=== PATIENT | female | born 1980 | race African-American/Black ===

== ENCOUNTER 2023-08-29 12:17 | Emergency (ER) | payer BC, SELFPAY ==
[2023-08-29 12:29] VITALS: BP 146/92
[2023-08-29 12:58] LABS: % Basophils 0.4 % (0-2); % Eosinophils 0.9 % (0-6); % Immature Granulocytes 0.4 % (0-0.5); % Lymphocytes 23.7 % (20.5-51.1); % Monocytes 5.1 % (1.7-9.3); % Neutrophils 69.5 % (42.2-75.2); Absolute Eosinophils 0.1 10^3/uL (0-0.7); Absolute Lymphocytes 1.8 10^3/uL (1.2-3.4); Absolute Monocytes 0.4 10^3/uL (0.1-0.6); Absolute Neutrophils 5.3 10^3/uL (1.4-6.5); Hematocrit 31.5 % (37.0-47.0); Hemoglobin 10.5 g/dL (12.0-16.0); Mean Corp Hgb Conc. 33.3 g/dL (33.0-37.0); Mean Corpuscular Hgb 25.4 pg (27.0-31.0); Mean Corpuscular Volume 76.1 fL (81.0-99.0); Mean Platelet Volume 8.7 fL (7.4-10.4); Nucleated Red Blood Cells % 0 %; Platelet Count 473 10^3/uL (130-400); Red Blood Cell Count 4.14 10^6/uL (4.20-5.40); Red Cell Dist. Width 15.9 % (11.5-14.5); White Blood Cell Count 7.6 10^3/uL (4.8-10.8)
[2023-08-29 13:00] LABS: HCG, Serum Qualitative Screen Negative
[2023-08-29 13:05] LABS: ALT (SGPT) 20 U/L (0-35); AST (SGOT) 25 U/L (14-36); Albumin 4.4 g/dl (3.5-5.0); Alkaline Phosphatase 93 U/L (38-126); Blood Urea Nitrogen 8 mg/dl (7-17); Calcium 9.6 mg/dl (8.4-10.2); Carbon Dioxide 22 mmol/L (22-30); Chloride 105 mmol/L (98-107); Glucose 83 mg/dl (70-99); Potassium 4.1 mmol/L (3.5-5.1); Sodium 135 mmol/L (135-145); Total Bilirubin 0.4 mg/dl (0.2-1.3); Total Protein 7.6 g/dl (6.3-8.2); eGFR > 60.00
[2023-08-29 13:15] LABS: Troponin I < 0.012 ng/ml
[2023-08-29 13:18] LABS: INR 1.13; PT 14.6 Sec (11.4-14.6)
[2023-08-29 15:35] VITALS: BP 118/82
--- NOTE | 2023-08-29 16:38 | ED.GENMED ---
History of Present Illness
General
Chief Complaint: Dizziness
Source: patient
Exam Limitations: none
Time Seen by Provider: 08/29/23 15:34
Nursing documentation reviewed up to this point in time: agreed with
Travel History
Have you had any contact with someone who has COVID-19?: No
Do you have any symptoms of coronavirus? Fever > 100 degrees, chills, cough, shortness of breath, sore throat, loss of taste or smell, muscle aches, or headache?: No
History of Present Illness
History of Present Illness:
43-year-old female presenting to the emergency department today with concerns of nausea room spinning dizziness that started at home while she was playing with her kids. This was abrupt in onset and seem to improve when she rested she was able to
go to sleep last night woke up this morning had very minimal symptoms but made worse with movement improves with sitting still. No vomiting mild headache initial but that has resolved no neck pain apparently had elevated blood pressure at home as
well. Does have history of vertigo but never officially diagnosed
Review of Systems
Review of Systems
Allergies reviewed?: Yes
All Other Systems: ROS reviewed and negative except as documented in HPI and ROS
Phy Exam
Physical Exam
Physical Exam:
GENERAL: Alert , in no apparent distress
EYE: pupils equal and reactive
NECK: Supple, no significant adenopathy.
ENT: Swollen boggy nasal turbinates, postnasal drip. Horizontal nystagmus with [place]-Hallpike maneuver o/p clr, mmm.
CARDIAC: Regular rate and rhythm .
LUNGS: Clear breath sounds bilaterally, no acute respiratory distress, no wheezes/rales/rhonchi
ABDOMEN: Soft, without focal tenderness, no r/g, no cvat
NEUROLOGICAL: Alert and oriented, no focal neuro deficits
SKIN: Warm and dry, skin intact.
MUSCULOSKELETAL: No edema, well perfused.
PSYCH: Normal and appropriate interaction.
Course
Orders/Labs/Results
Orders:
Orders
08/29/23 12:20
EKG [Electrocardiogram (*1)] Urgent
Reason for Study: Chest Pain
EKG- Treatment ONCE
08/29/23 12:32
Test Result ONCE
08/29/23 12:38
Complete Blood Count/With Diff Urgent
Comprehensive Metabolic Panel Urgent
HCG, Serum Qualitative Screen Urgent
Prothrombin Time Urgent
Troponin I Urgent
08/29/23 16:19
Dexamethasone [Decadron] 10 mg PO NOW STA
Abnormal Lab Results
08/29/23
12:38
RBC 4.14 L 10^6/uL
(4.20-5.40)
Hgb 10.5 L g/dL
(12.0-16.0)
Hct 31.5 L %
(37.0-47.0)
MCV 76.1 L fL
(81.0-99.0)
MCH 25.4 L pg
(27.0-31.0)
RDW 15.9 H %
(11.5-14.5)
Plt Count 473 H 10^3/uL
(130-400)
08/29/23 12:38
08/29/23 12:38
Vital Signs
Initial and Last Documented VS:
Initial Vital Signs
Temp Pulse Resp BP Pulse Ox
98.4 F 107 18 146/92 100
08/29/23 12:29 08/29/23 12:29 08/29/23 12:29 08/29/23 12:29 08/29/23 12:29
Last Documented Vital Signs
Temp Pulse Resp BP Pulse Ox
98.4 F 78 16 124/90 99
08/29/23 12:29 08/29/23 16:43 08/29/23 16:43 08/29/23 16:43 08/29/23 16:43
MDM/Problems Addressed
MDM/Problems Addressed:
43-year-old female presenting to the emergency department today with concerns of room spinning dizziness that was abrupt last night made better with rest. Here patient well-appearing in no acute distress patient able to ambulate does have some
reproducible symptoms with [place]-Hallpike making peripheral vertigo much more likely potentially BPPV/vital signs here at time of my assessment normal normal blood pressure. Normal neurologic evaluation stroke like cause seems to be very unlikely.
No signs of cardiac issues EKG normal Trope negative. Patient advised for using meclizine at home as well as prednisone considering she has significant inflammation to her sinuses. Otherwise stable for discharge. Return precautions given.
*Critical Care Note
Total Time (30-74mins, 75-104mins- exclusive of procedures): Not Applicable
ED Attending Note
-
Portions of this chart may have been created with voice recognition software.� Occasional wrong word or��sound alike� substitutions may have occurred due to the inherent limitations of voice recognition software.
Discharge Plan
Departure
Patient Disposition: Home (Routine Discharge)
Date of Disposition: 08/29/23
Time of Disposition: 16:38
Patient with high blood pressure during this ER visit?: No
Condition: Good
Covid-19: Not Applicable
Discharge Problem:
Vertigo, Sinus pressure
Instructions: Vertigo (a Type of Dizziness) (DC)
Prescriptions:
New
prednisone 20 mg tablet
40 mg PO DAILY 4 Days Qty: 8 0RF
meclizine 25 mg tablet
25 mg PO TID PRN (Reason: dizziness) Qty: 10 0RF
Referrals:
NONE,* [Family Provider] -
Hoa Abrams MD [Active] - Follow up in 2-3 days
Activity Restrictions/Additional Instructions:
You came to the emergency department today with concerns of dizziness nausea high blood pressure at home. Here had reassuring evaluation with reassuring labs. Her blood pressure here was 118/82 which is normal the remainder of your vital signs
normal. Your examination was reassuring. Please follow closely with ENT for any ongoing symptoms. Return to the emergency department for any worsening, new or concerning symptoms. For sinus pressure he can take the prednisone 40 mg once daily
for the next 4 days.
Interventions
Interventions:
*Risk Screen - Suicide Last Done: 08/29/23 12:29
*General Assessment Last Done: 08/29/23 12:29
*Neglect/Abuse Screening Last Done: 08/29/23 12:29
ED- Fall Risk Assessment Last Done: 08/29/23 15:42
*ED COVID-19 Vaccine History Last Done: 08/29/23 15:26
ED- Neurological Assessment Last Done: 08/29/23 15:06
ED Swallowing Screen Last Done: 08/29/23 15:06
[2023-08-29] MEDS: DECADRON 10 MG PO (16:41)
[2023-08-29 16:43] VITALS: BP 124/90
== END 2023-08-29 17:09 | disposition home or self-care (01) ==
LOC: EMR 12:17
PROVIDERS: Emergency Medicine; EMERGENCY PHYSICIAN Emergency Medicine
DX: R42 Dizziness and giddiness (principal); J34.89 Other specified disorders of nose and nasal sinuses
CPT/HCPCS: 99283; 80053; 84484; 84703; 85025; 85610; 93005